=== PATIENT | female | born 1930 | race Caucasian/White ===

== ENCOUNTER → 2018-04-30 | Outpatient (CLI) | payer MEDICARE ==
[2018-04-30 09:25] LABS: HCT 41.3 % (34.0-46.0); HGB 13.8 gm/dL (11.4-16.0); MCH 30.4 pg (25.0-35.0); MCHC 33.4 g/dL (31.0-37.0); MCV 91.1 fL (80.0-100.0); Mean Platelet Volume 6.8; Platelet Count 209 k/uL (150-450); RBC 4.53 m/uL (3.80-5.40); RDW 13.3 % (11.5-15.5); WBC 7.5 k/uL (3.8-10.6)
[2018-04-30 09:39] LABS: Potassium 4.9 mmol/L (3.5-5.1)
== END | disposition home or self-care (01) ==
LOC: LABPAT 08:07
PROVIDERS: ATTEND Internal Medicine Clinical Cardiac Electrophysiology
DX: Z01.812 Encounter for preprocedural laboratory examination (principal); E78.5 Hyperlipidemia, unspecified; I47.1 Supraventricular tachycardia
CPT/HCPCS: 36415; 80051; 82565; 82947; 84520; 85027

== ENCOUNTER 2018-05-11 09:22 | Day surgery (SDC) | payer MEDICARE ==
[2018-05-05 09:43] VITALS: BMI 28.8
[2018-05-11] MEDS ORDERED: SODIUM CHLORIDE 0.9% 1,000 ML IV ONE (09:45)
[2018-05-11] MEDS ORDERED: LIDOCAINE 1% INJ 10MG/ML (20 ML MDV) SQ ONE (11:29)
[2018-05-11] MEDS ORDERED: HYDROcodone/APAP 5-325MG 1 EACH TAB PO PRN (13:00)
[2018-05-11] MEDS ORDERED: ACETAMINOPHEN IV (For NPO) 1,000 MG in EMPTY BAG 1 BAG IVPB ONE (15:00)
[2018-05-11] MEDS: SODIUM CHLORIDE 0.9% 1,000 ML IV SCH (16:23)
[2018-05-11] MEDS: ACETAMINOPHEN TAB 325 MG TAB PO PRN ×2 (16:25→22:49)
--- NOTE | 2018-05-11 17:12 | P.DS ---
Providers Attending physician: Jamshid Reveles Primary care physician: [facility] Course: Patient is doing well. No chest discomfort dizziness lightheadedness. Her blood pressures in normal range. Groins healing well. Minimal tenderness no hematoma Home heart sounds normal S1 normal S2 Normal breath sounds no rhonchi no crackles No pleuritic chest discomfort dizziness or palpitations Abdomen soft nontender No lower extremity edema Impression AV node reentrant tachycardia Short, brief runs of slow atrial tachycardia Mildly prolonged DC interval of 218 ms Plan Stop beta blockers Continue other medications and follow with Dr. Cerrato in 2 weeks for a groin check Follow-up Holter monitor in 6-8 weeks Watch for atrial tachycardia in the future Plan - Discharge Summary Discharge Rx Participant: Yes New Discharge Prescriptions: Continue RX: Rosuvastatin Calcium [Crestor] 10 mg PO HS RX: Montelukast [Singulair] 10 mg PO QAM RX: Fexofenadine HCl [Aminah Allergy] 180 mg PO QAM RX: Budesonide-Formot 160-4.5 Mcg [Symbicort 160-4.5 Mcg Inhaler] 2 puff INHALATION BID RX: Melatonin 5 mg PO HS RX: Lactobacillus Acidophilus [Acidophilus] 1 each PO DAILY RX: Aspirin [Adult Low Dose Aspirin EC] 81 mg PO DAILY Discontinued Metoprolol 25 mg PO TID Discharge Medication List RX: Aspirin [Adult Low Dose Aspirin EC] 81 mg PO DAILY 05/05/18 [History] RX: Budesonide-Formot 160-4.5 Mcg [Symbicort 160-4.5 Mcg Inhaler] 2 puff INHALATION BID 05/05/18 [History] RX: Fexofenadine HCl [Aminah Allergy] 180 mg PO QAM 05/05/18 [History] RX: Lactobacillus Acidophilus [Acidophilus] 1 each PO DAILY 05/05/18 [History] RX: Melatonin 5 mg PO HS 05/05/18 [History] RX: Montelukast [Singulair] 10 mg PO QAM 05/05/18 [History] RX: Rosuvastatin Calcium [Crestor] 10 mg PO HS 05/05/18 [History] Follow up Appointment(s)/Referral(s): Jamshid Reveles MD [STAFF PHYSICIAN] - 2 Weeks Activity/Diet/Wound Care/Special Instructions: Post EP study - Ablation instructions 1. Keep access sites dry for 2 days. 2. No heavy lifting or straining for 2 days. 3. Avoid bending the hips repeatedly for 2 days. 4. You may go up and down stairs slowly Call if the following is noted 1. Bleeding, increasing swelling or pain at the access sites. 2. Increasing chest discomfort, especially upon taking a deep breath. 3. Increasing shortness of breath, at rest or with exertion. 4. Undue cough / phlegm 5. Difficulty or pain while swallowing. 6. Pain or change in color in the extremities. 7. Fever, chills, rigors. 8. Increasing headache or neurologic symptoms. 9. Dizziness, fainting, palpitations Stop metoprolol
--- NOTE | 2018-05-11 18:25 | PCN ---
PROCEDURE NOTE This is an 88-year-old female who has recurrent drug refractory supraventricular tachycardia. She was brought in for diagnostic EP study and radiofrequency ablation. In the past, she has been diagnosed with multifocal atrial tachycardia, but the tachycardia that I reviewed was consistent with AV joan reentry. It is drug refractory. Patient was brought to the EP lab in a fasting state. Written informed consent was obtained prior to the procedure. as per protocol. 1% lidocaine was used for local anesthesia. Four venous sheaths were placed and 3 in the right femoral vein and 1 in the left femoral vein. Via these, diagnostic catheters were positioned in the right heart including high right atrial catheter, his bundle catheter, RV and coronary sinus catheter. Baseline measurements were as follows: Sinus cycle length 818 milliseconds, MO interval 172 milliseconds, QRS 84 milliseconds, QT 433 milliseconds. AH interval 88 milliseconds, HV interval 48 milliseconds. Sinus node recovery times at 600, 500 and 400 milliseconds were 892 and 817 milliseconds. When pacing at a cycle length of 4 milliseconds tachycardia was very easily inducible. The tachycardia cycle length was 433 milliseconds. Septal times were short and less than 60 milliseconds. Post pacing interval was long. Post pacing interval minus tachycardia cycle length 185 milliseconds. The tachycardia was very inducible with the slightest stimulation including atrial pacing as well as ventricular pacing. Therefore, a long sheath was placed. A mapping ablation catheter was placed. 4 mm tip. 3D mapping was performed HIS cloud was tagged. The coronary sinus os was tagged. The slow pathway was mapped. First RF lesion resulted in elimination of AV joan reentry. Bonus RF lesions applied in that area. Good power and temperature was achieved. Diagnostic EP study thereafter revealed elimination of AV joan reentry. Tachycardia could not be induced. High-dose Isuprel was started and a full EP study was performed where atrial pacing, ventricular pacing as well as coronary sinus pacing. Early in the study at the start of the study, HIS bundle pacing had already been performed and showed a joan response. On Isuprel, AV node Wenckebach block 260 milliseconds, VA Wenckebach block 250 milliseconds. In the baseline state, post ablation and VA block was greater than 500 milliseconds. Atrial extra stimulation, ventricular extra stimulation was performed, coronary sinus extra stimulation was performed. No tachycardia was inducible. All catheters were then removed. The patient was transferred back to telemetry. At the start at the start of the study, we had also seen short runs of slow atrial tachycardia and it is quite possible that in another hospital, she may have had slow atrial tachycardia and hence a diagnosis of multifocal atrial tachycardia was made. However, this lady has symptomatic AV joan reentry which was successfully ablated. No other ablation was performed. PLAN: Stop beta blockers and watch for any atrial tachycardia. MMODL / IJN: [id number] /
[2018-05-11] MEDS: SYMBICORT 160-4.5 MCG INHALER INHALATION SCH (19:08)
[2018-05-11] MEDS ORDERED: MELATONIN 5 MG TABLET PO SCH (21:00)
[2018-05-11] MEDS ORDERED: ATORVASTATIN 20 MG TAB PO SCH (21:00)
[2018-05-12] MEDS: SYMBICORT 160-4.5 MCG INHALER INHALATION SCH (07:32)
[2018-05-12 07:51] VITALS: BP 137/83; PULSE 83; RESP 16; TEMP 97.5
[2018-05-12] MEDS: SODIUM CHLORIDE 0.9% 1,000 ML IV SCH (08:25)
[2018-05-12] MEDS: ACETAMINOPHEN TAB 325 MG TAB PO PRN (08:29)
[2018-05-12] MEDS ORDERED: MONTELUKAST 10 MG TAB PO SCH (09:00)
[2018-05-12] MEDS ORDERED: ASPIRIN 81 MG PO SCH (09:00)
== END 2018-05-12 11:51 | disposition home or self-care (01) ==
LOC: CATHEP 09:22 → 1SOBS 12:56 → CATHEP 05-12 11:51
PROVIDERS: ATTEND Internal Medicine Clinical Cardiac Electrophysiology
DX: I47.1 Supraventricular tachycardia (principal); E78.5 Hyperlipidemia, unspecified; Z79.82 Long term (current) use of aspirin; Z79.51 Long term (current) use of inhaled steroids; Z79.899 Other long term (current) drug therapy; Z88.0 Allergy status to penicillin
CPT/HCPCS: 94640 ×2; 93623; 93613; 93653; C1894; C1769 ×2; C1732; C1730 ×2; C1893; J2001

== ENCOUNTER → 2019-09-20 | Outpatient (CLI) | payer MEDICARE ==
[2019-09-20 12:38] LABS: Potassium 4.7 mmol/L (3.5-5.1)
[2019-09-20 12:51] LABS: HCT 45.7 % (34.0-46.0); HGB 14.9 gm/dL (11.4-16.0); MCH 31.1 pg (25.0-35.0); MCHC 32.6 g/dL (31.0-37.0); MCV 95.2 fL (80.0-100.0); Mean Platelet Volume 7.7; Platelet Count 170 k/uL (150-450); RDW 13.2 % (11.5-15.5); WBC 10.8 k/uL (3.8-10.6)
== END | disposition home or self-care (01) ==
LOC: LABPAT 11:06
PROVIDERS: ATTEND Internal Medicine Clinical Cardiac Electrophysiology
DX: Z01.812 Encounter for preprocedural laboratory examination (principal); I47.1 Supraventricular tachycardia; R00.2 Palpitations
CPT/HCPCS: 36415; 80051; 82565; 82947; 84520; 85027

== ENCOUNTER 2019-11-03 19:47 | Emergency (ER) | payer MEDICARE ==
[2019-11-03 20:38] LABS: Basophils # (A) 0.1 k/uL (0-0.2); Basophils % (A) 1 %; Eosinophils # (A) 0.2 k/uL (0-0.7); Eosinophils % (A) 3 %; HCT 40.6 % (34.0-46.0); HGB 13.7 gm/dL (11.4-16.0); Lymphocytes # (A) 1.8 k/uL (1.0-4.8); Lymphocytes % (A) 25 %; MCH 31.9 pg (25.0-35.0); MCHC 33.8 g/dL (31.0-37.0); MCV 94.4 fL (80.0-100.0); Mean Platelet Volume 7.9; Monocytes # (A) 0.6 k/uL (0-1.0); Monocytes % (A) 7 %; Neutrophils # (A) 4.6 k/uL (1.3-7.7); Neutrophils % (A) 61 %; Platelet Count 173 k/uL (150-450); RDW 13.5 % (11.5-15.5); WBC 7.4 k/uL (3.8-10.6)
[2019-11-03 20:49] LABS: Calcium 8.7 mg/dL (8.4-10.2); Magnesium 2.4 mg/dL (1.6-2.3); Potassium 4.1 mmol/L (3.5-5.1); Total Bilirubin 0.5 mg/dL (0.2-1.3); Total Protein 6.6 g/dL (6.3-8.2)
[2019-11-03 20:51] LABS: Partial Thromboplastin Time 24.1 sec (22.0-30.0)
--- NOTE | 2019-11-03 21:18 | XR ---
EXAMINATION TYPE: XR chest 2V DATE OF EXAM: 11/03/2019 COMPARISON: 03/11/2017 HISTORY: Dysrhythmia TECHNIQUE: FINDINGS: Heart is normal. Lungs are clear of infiltrate. There is no heart failure. There is no pleu ral effusion. There are chest leads. Bony thorax is intact. There is some osteopenia. IMPRESSION: No active cardiopulmonary disease. Normal heart. No change.
--- NOTE | 2019-11-03 22:02 | ED ---
Dizziness HPI - General Chief Complaint: Dizziness Stated Complaint: Dizziness Time Seen by Provider: 11/03/19 19:50 Source: patient, EMS Mode of arrival: EMS - History of Present Illness Initial Comments: The patient is an 89-year-old female past medical history of SVT presents emergency Department with reported presyncopal sensation and nausea. She states that she was sitting at home on the couch when she had sudden onset of nausea and presyncope. Her daughter checked her pulse and found it to be in the 40s. She called EMS. They did administer some fluids to the patient through provide the and gave her 4 of Zofran. The patient does arrive and states she feels better at this time. She is noted to be bradycardic. Reports that she recently had a change to her medications. Dr. Mcrae had her on 80 mg of verapamil 3 times daily. Her heart rate had been running high and so last week they changed it to 240 mg extended release once daily and added atenolol 25 mg once daily. The patient reports that she took this medication around 6 PM and it was approximate one hour later when she began feeling symptomatic. Denies any chest pain. No ripping return sensation to her back. She has had recent stress testing which was normal. She has had a previous ablation. Was scheduled to have another one at the end of September however this was canceled because of the Covid pandemic. She denies any headaches or visual changes. No vomiting or abdominal pain. There are no alleviating, precipitating or modifying factors - Related Data Home Medications Medication Instructions Recorded Confirmed Aspirin [Adult Low Dose Aspirin EC] 81 mg PO DAILY 05/05/18 05/11/18 Budesonide-Formot 160-4.5 Mcg 2 puff INHALATION BID 05/05/18 05/11/18 [Symbicort 160-4.5 Mcg Inhaler] Fexofenadine HCl [Aminah Allergy] 180 mg PO QAM 05/05/18 05/11/18 Lactobacillus Acidophilus 1 each PO DAILY 05/05/18 05/11/18 [Acidophilus] Melatonin 5 mg PO HS 05/05/18 05/11/18 Montelukast [Singulair] 10 mg PO QAM 05/05/18 05/11/18 Rosuvastatin Calcium [Crestor] 10 mg PO HS 05/05/18 05/11/18 Allergies Allergy/AdvReac Type Severity Reaction Status Date / Time Penicillins Allergy Unknown Verified 11/03/19 20:03 shellfish derived [Shellfish] Allergy Rash/Hives Verified 11/03/19 20:03 Dyes Allergy Rash/Hives Uncoded 11/03/19 20:03 Review of Systems ROS Statement: Those systems with pertinent positive or pertinent negative responses have been documented in the HPI. ROS Other: All systems not noted in ROS Statement are negative. Past Medical History Past Medical History: Asthma, Hyperlipidemia, Supraventricular Tachycardia (SVT) History of Any Multi-Drug Resistant Organisms: None Reported Past Surgical History: Cholecystectomy, Hysterectomy Past Psychological History: No Psychological Hx Reported Smoking Status: Never smoker Past Alcohol Use History: None Reported Past Drug Use History: None Reported General Exam General appearance: alert, in no apparent distress Head exam: Present: atraumatic, normocephalic, normal inspection Eye exam: Present: normal appearance, PERRL, EOMI. Absent: scleral icterus, conjunctival injection, periorbital swelling ENT exam: Present: normal exam, mucous membranes moist Neck exam: Present: normal inspection. Absent: tenderness, meningismus, lymphadenopathy Respiratory exam: Present: normal lung sounds bilaterally. Absent: respiratory distress, wheezes, rales, rhonchi, stridor Cardiovascular Exam: Present: normal rhythm, bradycardia, normal heart sounds. Absent: systolic murmur, diastolic murmur, rubs, gallop, clicks GI/Abdominal exam: Present: soft, normal bowel sounds. Absent: distended, tenderness, guarding, rebound, rigid Extremities exam: Present: normal inspection, full ROM, normal capillary refill. Absent: tenderness, pedal edema, joint swelling, calf tenderness Back exam: Present: normal inspection Neurological exam: Present: alert, oriented X3, CN II-XII intact, other (finger to nose is symmetric) Psychiatric exam: Present: normal affect, normal mood Skin exam: Present: warm, dry, intact, normal color. Absent: rash Course Vital Signs 11/03/19 11/03/19 11/03/19 19:52 20:07 21:01 Temperature 97.8 F Pulse Rate 56 L 53 L Pulse Rate [ 57 L [employer] ] Pulse Rate [ 54 L Pulse Oximetery ] Respiratory 17 18 Rate Blood Pressure 118/64 112/60 O2 Sat by Pulse 96 93 L Oximetry 11/03/19 22:00 Temperature 98.9 F Pulse Rate 57 L Pulse Rate [ [employer] ] Pulse Rate [ Pulse Oximetery ] Respiratory 15 Rate Blood Pressure 113/68 O2 Sat by Pulse 94 L Oximetry EKG Findings - EKG Comments: EKG Findings:: EKG demonstrates sinus bradycardia with a ventricular rate of 58. CT interval to 80. QRS 88. QTC of 449. Baseline artifact in leads [address] acute [address] segment elevation. First degree AV block Medical Decision Making - Medical Decision Making Upon arrival the patient was placed into trauma bay 1. A thorough history and physical exam was performed. 12-lead EKG was performed which demonstrates a sinus bradycardia with a first-degree AV block. Peripheral IV was established by EMS. I did recommend laboratory studies and a chest x-ray. Laboratory studies are unremarkable. Troponin is negative. Chest x-ray demonstrates no active cardiopulmonary disease. I reevaluated the patient she continues to remain asymptomatic throughout her stay. I discussed diagnosis, differential and treatment options. The patient does request to go home at this time because of the covid pandemic. I did call discuss the case with Dr. Souza. He did state that he would prefer that the patient remain hospitalized however if she opts to go home that she should stop taking her atenolol and call Dr. Mcrae in the morning. The patient agreed to this. Once again I recommended admission however the patient continued to refuse. The daughter is at bedside. If the patient has any new or worsening symptoms, she should return to the emergency department. Patient was in agreement treatment plan and discharged home in stable condition - Lab Data Result diagrams: 11/03/19 20:16 11/03/19 20:16 Lab Results 11/03/19 11/03/19 11/03/19 Range/Units 20:16 20:16 20:16 WBC 7.4 (3.8-10.6) k/uL RBC 4.30 (3.80-5.40) m/uL Hgb 13.7 (11.4-16.0) gm/dL Hct 40.6 (34.0-46.0) % MCV 94.4 (80.0-100.0) fL MCH 31.9 (25.0-35.0) pg MCHC 33.8 (31.0-37.0) g/dL RDW 13.5 (11.5-15.5) % Plt Count 173 (150-450) k/uL Neutrophils % 61 % Lymphocytes % 25 % Monocytes % 7 % Eosinophils % 3 % Basophils % 1 % Neutrophils # 4.6 (1.3-7.7) k/uL Lymphocytes # 1.8 (1.0-4.8) k/uL Monocytes # 0.6 (0-1.0) k/uL Eosinophils # 0.2 (0-0.7) k/uL Basophils # 0.1 (0-0.2) k/uL PT 10.0 (9.0-12.0) sec INR 1.0 (<1.2) APTT 24.1 (22.0-30.0) sec Sodium 139 (137-145) mmol/L Potassium 4.1 (3.5-5.1) mmol/L Chloride 102 (98-107) mmol/L Carbon Dioxide 27 (22-30) mmol/L Anion Gap 10 mmol/L BUN 17 (7-17) mg/dL Creatinine 0.84 (0.52-1.04) mg/dL Est GFR (CKD-EPI)AfAm 72 (>60 ml/min/1.73 sqM) Est GFR (CKD-EPI)NonAf 63 (>60 ml/min/1.73 sqM) Glucose 123 H (74-99) mg/dL Calcium 8.7 (8.4-10.2) mg/dL Magnesium 2.4 H (1.6-2.3) mg/dL Total Bilirubin 0.5 (0.2-1.3) mg/dL AST 40 H (14-36) U/L ALT 28 (4-34) U/L Alkaline Phosphatase 87 (38-126) U/L Troponin I (0.000-0.034) ng/mL Total Protein 6.6 (6.3-8.2) g/dL Albumin 4.0 (3.5-5.0) g/dL TSH 2.910 (0.465-4.680) mIU/L 11/03/19 Range/Units 20:16 WBC (3.8-10.6) k/uL RBC (3.80-5.40) m/uL Hgb (11.4-16.0) gm/dL Hct (34.0-46.0) % MCV (80.0-100.0) fL MCH (25.0-35.0) pg MCHC (31.0-37.0) g/dL RDW (11.5-15.5) % Plt Count (150-450) k/uL Neutrophils % % Lymphocytes % % Monocytes % % Eosinophils % % Basophils % % Neutrophils # (1.3-7.7) k/uL Lymphocytes # (1.0-4.8) k/uL Monocytes # (0-1.0) k/uL Eosinophils # (0-0.7) k/uL Basophils # (0-0.2) k/uL PT (9.0-12.0) sec INR (<1.2) APTT (22.0-30.0) sec Sodium (137-145) mmol/L Potassium (3.5-5.1) mmol/L Chloride (98-107) mmol/L Carbon Dioxide (22-30) mmol/L Anion Gap mmol/L BUN (7-17) mg/dL Creatinine (0.52-1.04) mg/dL Est GFR (CKD-EPI)AfAm (>60 ml/min/1.73 sqM) Est GFR (CKD-EPI)NonAf (>60 ml/min/1.73 sqM) Glucose (74-99) mg/dL Calcium (8.4-10.2) mg/dL Magnesium (1.6-2.3) mg/dL Total Bilirubin (0.2-1.3) mg/dL AST (14-36) U/L ALT (4-34) U/L Alkaline Phosphatase (38-126) U/L Troponin I <0.012 (0.000-0.034) ng/mL Total Protein (6.3-8.2) g/dL Albumin (3.5-5.0) g/dL TSH (0.465-4.680) mIU/L Disposition Clinical Impression: Dizziness, Pre-syncope, Bradycardia Disposition: HOME SELF-CARE Condition: Stable Instructions (If sedation given, give patient instructions): Bradycardia (ED) Additional Instructions: Please stop taking your atenolol. Call Dr. Mcrae in the morning for an appointment. Return to the emergency room for any new or worsening symptoms Is patient prescribed a controlled substance at d/c from ED?: No Referrals: Alvin Rios MD [Primary Care Provider] - 1-2 days Time of Disposition: 22:02
[2019-11-03 22:09] VITALS: BP 113/68; PULSE 57; RESP 15; TEMP 98.9
== END 2019-11-03 22:11 | disposition home or self-care (01) ==
LOC: EC 19:47
DX: I44.0 Atrioventricular block, first degree (principal); R00.1 Bradycardia, unspecified; R42 Dizziness and giddiness; J45.909 Unspecified asthma, uncomplicated; E78.5 Hyperlipidemia, unspecified; Z79.82 Long term (current) use of aspirin; Z79.899 Other long term (current) drug therapy; Z79.51 Long term (current) use of inhaled steroids; Z88.0 Allergy status to penicillin; Z91.013 Allergy to seafood; Z91.041 Radiographic dye allergy status; Z86.79 Personal history of other diseases of the circulatory system
CPT/HCPCS: 36415; 71046; 80053; 83735; 84443; 84484; 85025; 85610; 85730; 93005; 99285

== ENCOUNTER → 2019-12-03 | Outpatient (CLI) | payer MEDICARE | END | disposition home or self-care (01) | LOC: LABWHC1 12:04 | PROVIDERS: ATTEND Internal Medicine Clinical Cardiac Electrophysiology | DX: Z11.59 Encounter for screening for other viral diseases (principal) | CPT/HCPCS: 82565; 82947; 84132; 84520; 85027; 87635 ==

== ENCOUNTER 2019-12-06 12:49 | Day surgery (SDC) | payer MEDICARE ==
[2019-12-02 16:41] VITALS: BMI 28.3
[2019-12-03 13:05] LABS: HCT 43.7 % (34.0-46.0); HGB 13.8 gm/dL (11.4-16.0); MCH 30.5 pg (25.0-35.0); MCHC 31.6 g/dL (31.0-37.0); MCV 96.5 fL (80.0-100.0); Mean Platelet Volume 7.4; Platelet Count 222 k/uL (150-450); RBC 4.53 m/uL (3.80-5.40); RDW 13.1 % (11.5-15.5)
[2019-12-03 13:12] LABS: Potassium 4.4 mmol/L (3.5-5.1)
[~2019-12-06 12:49] MED LIST: LACTATED RINGERS 1,000 ML IV SCH; diphenhydrAMINE 50 MG/ML 1 ML VIAL IVP ONE; methylPREDNISolone SOD SUCCI 125 MG/2 ML VIAL IV ONE
[2019-12-06 13:49] LABS: Basophils # (A) 0.1 k/uL (0-0.2); Basophils % (A) 1 %; Eosinophils # (A) 0.1 k/uL (0-0.7); Eosinophils % (A) 2 %; HCT 44.1 % (34.0-46.0); HGB 14.3 gm/dL (11.4-16.0); Lymphocytes % (A) 25 %; MCH 30.6 pg (25.0-35.0); MCHC 32.4 g/dL (31.0-37.0); MCV 94.5 fL (80.0-100.0); Mean Platelet Volume 7.5; Monocytes # (A) 0.4 k/uL (0-1.0); Monocytes % (A) 5 %; Neutrophils # (A) 5.2 k/uL (1.3-7.7); Neutrophils % (A) 65 %; Platelet Count 213 k/uL (150-450); RBC 4.67 m/uL (3.80-5.40)
[2019-12-06] MEDS ORDERED: SODIUM CHLORIDE 0.9% 1,000 ML IV ONE (13:55)
[2019-12-06 13:58] LABS: Calcium 9.4 mg/dL (8.4-10.2)
[2019-12-06 14:11] LABS: Potassium 4.8 mmol/L (3.5-5.1)
[2019-12-06] MEDS ORDERED: MIDAZOLAM 2 MG/2 ML VIAL ONE (14:48)
[2019-12-06] MEDS ORDERED: LIDOCAINE 1% INJ 10MG/ML (20 ML MDV) ONE ×2 (14:48→15:19)
[2019-12-06] MEDS ORDERED: ISOPROTERENOL 250 MCG/1.25 ML SYR IV ONE (14:48)
[2019-12-06] MEDS ORDERED: PROPOFOL 10 MG/ML 20 ML VIAL IV ONE (14:48)
[2019-12-06] MEDS ORDERED: HYDROmorphone (PF) 1 MG/ML ONE (14:48)
[2019-12-06] MEDS ORDERED: LIDOCAINE 1% INJ 10MG/ML (20 ML MDV) SQ ONE (15:20)
[2019-12-06] MEDS ORDERED: HEPARIN SODIUM 1,000 UN/ML (10ML VL) ONE (15:22)
[2019-12-06] MEDS ORDERED: HEPARIN SODIUM (1,000 UNIT/ML) 1,000 UNIT in SODIUM CHLORIDE 0.9% 1,000 ML IRRIGATION ONE (15:30)
[2019-12-06] MEDS ORDERED: guaiFENesin 600 MG TABLET.ER PO PRN (17:29)
--- NOTE | 2019-12-06 17:51 | P.PRLE ---
RE: EveningsylviaAida Castro Dear Alvin Parra has SVT, refractory to medical treatment. She has known atrial tachycardia that did not respond to high dose of verapamil plus digoxin and she underwent successful ablation today This was a high right atrial tachycardia at the SVC right atrial junction anterolaterally The tachycardia was rendered noninducible at the end of the procedure both on and off Isuprel I asked her to stop verapamil and digoxin completely and we will watch her blood pressure in the interim Thank you for entrusting me with the care of the patient Warm regards Sincerely Jamshid Reveles
[2019-12-06] MEDS ORDERED: ACETAMINOPHEN IV (For NPO) 1,000 MG in EMPTY BAG 1 BAG IVPB ONE (20:00)
[2019-12-06] MEDS: SYMBICORT 160-4.5 MCG INHALER INHALATION SCH (20:41)
[2019-12-06] MEDS: SODIUM CHLORIDE 0.9% 1,000 ML IV SCH (20:44)
[2019-12-06] MEDS: ACETAMINOPHEN TAB 325 MG TAB PO PRN (20:51)
[2019-12-06] MEDS ORDERED: ATORVASTATIN 20 MG TAB PO SCH (21:00)
[2019-12-06] MEDS ORDERED: MONTELUKAST 10 MG TAB PO SCH (21:00)
[2019-12-06 21:04] VITALS: RESP 18
--- NOTE | 2019-12-06 23:05 | PCN ---
PROCEDURE NOTE This is an 89-year-old female who has refractory SVT despite Verapamil and digoxin. She was brought in for a diagnostic EP study and radiofrequency ablation. Patient was brought to the EP lab in a fasting state. Written informed consent was obtained prior to the procedure. The right and left groins were prepped and draped as per protocol and 3 venous sheaths were placed. Via these, catheters were placed in the high right atrium, His bundle area, coronary sinus and right ventricle. Clinical SVT/atrial tachycardia was very easily inducible with burst stimulation from the coronary sinus. The tachycardia was earliest at the early signals in the high right atrial poles with a high to low sequence. An irrigated-tip ablation catheter was placed in the high right atrium and the tachycardia was mapped. The earliest site was found to be at the junction of the SVC and right atrium entered laterally. The phrenic nerve was mapped at this point and there was no evidence for phrenic nerve at and around the earliest site with high- output pacing. RF ablation was applied, contact force of between 8 and 15 grams, power of between 25 and 35 penn from 60 minutes down to 20 seconds, depending upon the wattage used. Complete RF ablation was performed and the tachycardia was rendered noninducible. Later, high-dose Isuprel was also used, and the tachycardia could not be re-induced both on and off Isuprel. However, during burst stimulation to look for atrial tachycardia she had inducible AV joan reentry. Ventricular pacing was performed during this tachycardia, but it would terminate the AVNRT. The septal times were less than 60 milliseconds. RF ablation was first applied just outside the coronary sinus and anterior to it. However, the tachycardia was still re-inducible on high-dose Isuprel and burst stimulation from the coronary sinus. Therefore RF ablation was then applied within the coronary sinus and the roof, about 1 cm into the coronary sinus at the roof. Good contact force and good power and a good impedance drop was noted. Following that, the tachycardia could not be re-induced anymore despite high-dose Isuprel, burst stimulation from multiple sites, straight pacing from multiple sites, and extrastimulation after double extrastimuli from multiple sites. Only single-echo beats were noted. At the end, AV node Wenckebach block was intact. AV node Wenckebach block 220 milliseconds, VA Wenckebach block 220 milliseconds and OK interval was normal. All catheters were then removed and the patient was transferred to telemetry. RESULT: Diagnostic EP study revealin. A high right atrial tachycardia at the junction of the SVC and right atrium anterolaterally. 2. Successful mapping and ablation was performed and the tachycardia was rendered noninducible both on and off Isuprel. 3. AV joan re-entry was rendered noninducible with residual single-echo beats, both on and off Isuprel. PLAN: Stop Verapamil. Stop digoxin. Continue rosuvastatin and follow up with Dr. Reveles within one to two weeks post discharge. MMODL / IJN: [id number] /
[2019-12-07 03:59] VITALS: BP 96/58; PULSE 63; TEMP 97.7
[2019-12-07] MEDS: SODIUM CHLORIDE 0.9% 1,000 ML IV SCH (06:32)
[2019-12-07] MEDS ORDERED: PANTOPRAZOLE 40 MG TABLET PO SCH (07:30)
--- NOTE | 2019-12-07 07:31 | P.DS ---
Providers Attending physician: Jamshid Reveles Primary care physician: [facility] Course: Impression is doing well. She is ambulating around in the room. She has no precordial chest discomfort no shortness of breath she is not dizzy or lightheaded Groins of healed well There is no hematoma or swelling or tenderness On examination she is afebrile 97.7F normal respirations Blood pressure 101/58 mmHg Sounds are clear no rhonchi no crackles Normal heart sounds no murmurs line abdomen is soft nontender Extremities warm Impression High right atrial tachycardia at the junction of the SVC and right atrium, anterolaterally No phrenic nerve stimulation at this location AV joan reentrant tachycardia status post ablation Dyslipidemia Plan Stop verapamil Stop digoxin Continue Crestor Follow-up with Dr. Reveles within 2 weeks Reevaluation of blood pressure while off verapamil Plan - Discharge Summary Discharge Rx Participant: Yes New Discharge Prescriptions: Continue Rosuvastatin Calcium [Crestor] 10 mg PO HS Montelukast [Singulair] 10 mg PO HS Fexofenadine HCl [Aminah Allergy] 180 mg PO QAM Budesonide-Formot 160-4.5 Mcg [Symbicort 160-4.5 Mcg Inhaler] 2 puff INHALATION BID Melatonin 5 mg PO HS Lactobacillus Acidophilus [Acidophilus] 1 each PO DAILY guaiFENesin [Mucinex] 1,200 mg PO HS PRN PRN Reason: Congestion Turmeric Root Extract [Turmeric] 500 mg PO DAILY Esomeprazole Magnesium [NexIUM] 20 mg PO DAILY Acetaminophen [Tylenol] 500 - 1,000 mg PO DIRECTED PRN PRN Reason: Pain Albuterol Nebulized (Conc) [Ventolin Nebulized (Conc)] 2.5 mg INHALATION Q6H PRN PRN Reason: asthma sx Discontinued Verapamil HCl [Verapamil ER] 240 mg PO DAILY Discharge Medication List Budesonide-Formot 160-4.5 Mcg [Symbicort 160-4.5 Mcg Inhaler] 2 puff INHALATION BID 05/05/18 [History] Fexofenadine HCl [Aminah Allergy] 180 mg PO QAM 05/05/18 [History] Lactobacillus Acidophilus [Acidophilus] 1 each PO DAILY 05/05/18 [History] Melatonin 5 mg PO HS 05/05/18 [History] Montelukast [Singulair] 10 mg PO HS 05/05/18 [History] Rosuvastatin Calcium [Crestor] 10 mg PO HS 05/05/18 [History] Acetaminophen [Tylenol] 500 - 1,000 mg PO DIRECTED PRN 12/02/19 [History] Albuterol Nebulized (Conc) [Ventolin Nebulized (Conc)] 2.5 mg INHALATION Q6H PRN 12/02/19 [History] Esomeprazole Magnesium [NexIUM] 20 mg PO DAILY 12/02/19 [History] Turmeric Root Extract [Turmeric] 500 mg PO DAILY 12/02/19 [History] guaiFENesin [Mucinex] 1,200 mg PO HS PRN 12/02/19 [History] Follow up Appointment(s)/Referral(s): Jamshid Reveles MD [STAFF PHYSICIAN] - 1 Week (Follow Dr. Reveles within 1-2 weeks for a groin check and blood pressure check Discontinue digoxin Discontinue verapamil Continue rosuvastatin) Activity/Diet/Wound Care/Special Instructions: Post EP study - Ablation instructions 1. Keep access sites dry for 2 days. 2. No heavy lifting or straining for 2 days. 3. Avoid bending the hips repeatedly for 2 days. 4. You may go up and down stairs slowly Call if the following is noted 1. Bleeding, increasing swelling or pain at the access sites. 2. Increasing chest discomfort, especially upon taking a deep breath. 3. Increasing shortness of breath, at rest or with exertion. 4. Undue cough / phlegm 5. Difficulty or pain while swallowing. 6. Pain or change in color in the extremities. 7. Fever, chills, rigors. 8. Increasing headache or neurologic symptoms. 9. Dizziness, fainting, palpitations Stop verapamil Stop digoxin Continue rosuvastatin Home blood pressure monitoring Follow Dr. Reveles within 1-2 weeks/Follow-up with Dr. Reveles/Linda Duffy/Anju Shultz Discharge Disposition: HOME SELF-CARE
[2019-12-07] MEDS: SYMBICORT 160-4.5 MCG INHALER INHALATION SCH (07:34)
[2019-12-07] MEDS ORDERED: LORATADINE 10 MG TAB PO SCH (09:00)
[2019-12-07] MEDS: ACETAMINOPHEN TAB 325 MG TAB PO PRN (09:41)
== END 2019-12-07 10:22 | disposition home or self-care (01) ==
LOC: CATHEP 12:49 → 3SCARD 19:54 → CATHEP 12-07 10:22
PROVIDERS: ATTEND Internal Medicine Clinical Cardiac Electrophysiology
DX: I47.1 Supraventricular tachycardia (principal); E78.5 Hyperlipidemia, unspecified; K59.03 Drug induced constipation; T46.1X5A Adverse effect of calcium-channel blockers, initial encounter; R00.1 Bradycardia, unspecified; T50.905A Adverse effect of unspecified drugs, medicaments and biological substances, initial encounter; Z82.49 Family history of ischemic heart disease and other diseases of the circulatory system; Z79.899 Other long term (current) drug therapy; Z79.51 Long term (current) use of inhaled steroids; Z88.0 Allergy status to penicillin
CPT/HCPCS: 94640; 93623; 93613; 93653; 80048; 82565; 84132; 82947; 84520; 85025; 85027; C1894; C1769 ×2; C1730 ×2; C1893; C1732; J2001; J1644

== ENCOUNTER → 2022-01-11 | Outpatient (CLI) | payer MEDICARE ==
--- NOTE | 2022-01-11 15:36 | CT ---
EXAMINATION TYPE: CT abdomen pelvis w con CT DLP: 865.2 mGycm, Automated exposure control for dose reduction was used. DATE OF EXAM: 01/11/2022 3:14 PM COMPARISON: None. CLINICAL INDICATION:Female, 89 years old with history of R10.31 Colicky RLQ abd pain; RLQ pain TECHNIQUE: Standard CT of the abdomen and pelvis following the administration of 100 cc of Isovue 3 00 IV contrast material and oral contrast. Coronal and sagittal reformats were performed. FINDINGS: LOWER CHEST: Unremarkable ABDOMEN LIVER: Diffusely hypoattenuating parenchyma. GALLBLADDER AND BILE DUCTS: Gallbladder is surgically absent with mild intrahepatic and extra hepatic biliary dilatation likely physiologic and a postcholecystectomy change. No evidence of choledocholit hiasis. PANCREAS: Unremarkable. SPLEEN: Unremarkable. ADRENAL GLANDS: Unremarkable. KIDNEYS AND URETERS: No evidence of hydronephrosis or renal calculus. Bilateral renal cysts. PELVIS BLADDER: Unremarkable REPRODUCTIVE: The uterus is surgically absent. ABDOMEN & PELVIS STOMACH AND BOWEL: No evidence of bowel obstruction. Appendix is normal. PERITONEUM: No evidence of pneumoperitoneum or free fluid. VASCULATURE: No evidence of aortic aneurysm. Atherosclerosis of the arterial vasculature. MUSCULOSKELETAL: No acute osseous abnormalities. 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 Multilevel facet joint arthropathy present. LYMPH NODES: No gross evidence for lymphadenopathy. SOFT TISSUE/ABDOMINAL WALL: Fat filled umbilical hernia measuring 0.4 cm at the neck. IMPRESSION: 1. Normal-appearing appendix. No evidence of right lower quadrant acute process to explain the patie nt's pain. 2. Hepatic steatosis. 3. Simple renal cysts.
== END | disposition home or self-care (01) ==
LOC: RADCTMAIN 13:38
PROVIDERS: ATTEND Family Medicine
DX: K76.0 Fatty (change of) liver, not elsewhere classified (principal); N28.1 Cyst of kidney, acquired
CPT/HCPCS: 82565; 84520; 74177; 36415; Q9967